=== PATIENT | female | born 1990 | race Caucasian/White ===

== ENCOUNTER 2023-08-01 16:29 | Inpatient (IN) | payer OTHER, SELFPAY ==
[2023-08-01] VITALS (10 sets, daily range): BP systolic 109–126; BP diastolic 68–85; BMI 26.7; BMI 26.5
--- NOTE | 2023-08-01 09:40 | ED.GENMED ---
History of Present Illness
General
Chief Complaint: Abdominal Symptoms
Source: patient
Exam Limitations: none
Time Seen by Provider: 08/01/23 08:44
Nursing documentation reviewed up to this point in time: agreed with
Travel History
Have you had any contact with someone who has COVID-19?: No
Do you have any symptoms of coronavirus? Fever > 100 degrees, chills, cough, shortness of breath, sore throat, loss of taste or smell, muscle aches, or headache?: No
History of Present Illness
History of Present Illness:
Patient presents to ED secondary to persistent nausea, vomiting, and nonbloody diarrhea, along with abdominal cramping sensation over the past 3 days. Patient reports having had meal at [employer] today of her symptoms. Patient initially considered food
poisoning, but her symptoms have continued. Denies sick contact. Denies recent travel. Patient has had fever as high as up to 101. Denies previous history of similar symptoms. Of note, patient is currently breast-feeding at home.
Review of Systems
Review of Systems
Allergies reviewed?: Yes
All Other Systems: ROS reviewed and negative except as documented in HPI and ROS
Constitutional: Reports fever
EENT: Reports no symptoms
Respiratory: Reports no symptoms
Cardiac: Reports no symptoms
ABD/GI: Reports abdominal pain, nausea, vomiting and diarrhea
: Reports no symptoms
Musculoskeletal: Reports no symptoms
Skin: Reports no symptoms
Neurological: Reports no symptoms
Phy Exam
Physical Exam
Physical Exam:
Physical Exam
General: no apparent distress, not acutely ill. afebrile
Head: nc/at. eomi
Neck: supple. no meningeal signs.
Heart: tachcardic, no murmur. equal radial pulses.
Lungs: no acute respiratory distress. clear bilaterally
Abdomen: normal bowel sounds. mild diffuse tenderness. mild distention noted.
Neuro: alert and oriented. no focal neurological deficits
Skin: no rash
Psychiatric: well kept. interactive and cooperative
Extremities: no edema. no calf tenderness.
Course
Orders/Labs/Results
Orders:
Orders
08/01/23 09:18
0.9% Sodium Chloride 1000 ml [Nss] 1,000 ml IV BOLUS
Ketorolac [Toradol] 15 mg IV NOW STA
Pantoprazole [Protonix IV] 40 mg IV NOW STA
Test Result ONCE
08/01/23 09:27
0.9% Sodium Chloride 1000 ml [Nss] 1,000 ml IV BOLUS
08/01/23 09:57
Complete Blood Count/With Diff Urgent
Comprehensive Metabolic Panel Urgent
HCG, Serum Qualitative Screen Urgent
Magnesium Urgent
Urinalysis Reflex To Culture Urgent
Date Specimen was Collected: 08/01/23
Time Specimen was Collected: 09:47
Urine Microscopic Reflex Cult Urgent
08/01/23 11:13
CT Abd/pel (oral only)-DH Only Urgent
Comment:
Reason For Exam: lower abdominal pain
Iohexol [Omnipaque] See Protocol PO NOW STA
08/01/23 11:26
Norovirus by PCR Urgent
SHAIN[facility] Source: Feces/Stool
Specimen Description:
Date Specimen was Collected: 08/01/23
Time Specimen was Collected: 11:25
Stool Culture Urgent
SHAINA Source: Feces/Stool
Specimen Description:
Date Specimen was Collected: 08/01/23
Time Specimen was Collected: 11:25
08/01/23 11:51
Acetaminophen [Tylenol] 650 mg PO NOW STA
08/01/23 14:21
Piperacillin/Tazo 3.375 Gram [Zosyn] 3.375 gram in 50 ml .ROUTE .STK-MED
08/01/23 14:24
Piperacillin/Tazo 3.375 Gram [Zosyn] 3.375 gram in 50 ml IV NOW
08/01/23 Dinner
NPO
Allow oral meds: No
Allow clear liquids: No
NPO with Ice Chips: No
NPO
Allow oral meds: Yes
Allow clear liquids: No
NPO with Ice Chips: Yes
08/01/23 15:34
SURGICAL CONSULT Routine
Consulting Provider: Vickey Yoon
Was physician already notified: Yes
Reason for consult: perf appendix
08/01/23 15:37
Admit/Transfer Patient As Directed
Co-Sign Provider:
Level of Care: Inpatient admission
Assign to:: Medical/Surgical
Physician / Group: tony de guzman
Diagnosis: sepsis with perforated appendix
Reason for Hospitalization: sepsis with perforated appendix
Expected length of stay greater than two midnights?: Yes
ELOS- Estimated Length of Stay in days: 3
I certify the patient meets the requirements for IP care: Yes
Code Status As Directed
Resuscitation Status: Full Code
08/01/23 15:48
Ketorolac [Toradol] 30 mg IV Q6HPRN PRN
Morphine Sulfate 4 mg IV Q4HPRN PRN
Ondansetron Injectable [Zofran] 4 mg IV Q6HPRN PRN
08/01/23 16:00
0.9% Sodium Chloride 1000 ml [Nss] 1,000 ml IV 125 mls/hr
08/01/23 17:42
0.9% Sodium Chloride 1000 ml [Nss] 1,000 ml IV 100 mls/hr
08/01/23 17:42
Activity As Directed
Activity Level: As Tolerated
Intake/ Output As Directed
Frequency: Per unit guidelines
Pneumatic Compression Sleeves As Directed
Type: Knee high
Vital Signs As Directed
Frequency: Per unit guidelines
Pt Eval And Treat Routine
Activity Level: As Tolerated
DX Deep Vein Thrombosis Video Routine
08/01/23 18:11
Blood Culture Q30M
SHAINA Source: Blood/Venous
Specimen Description:
08/01/23 18:53
Blood Culture Q30M
SHAINA Source: Blood/Venous
Specimen Description:
08/01/23 20:00
Piperacillin/Tazo 3.375 Gram [Zosyn] 3.375 gram in 50 ml IV Q6H
08/02/23 05:49
Complete Blood Count/With Diff IN AM
Comprehensive Metabolic Panel IN AM
08/02/23 08:00
Pantoprazole [Protonix IV] 40 mg IV DAILY
Abnormal Lab Results
08/01/23
09:57
WBC 20.6 H 10^3/uL
(4.8-10.8)
MPV 12.1 H fL
(7.4-10.4)
Abs Immat Gran (auto) 0.1 H 10^3/uL
(0-0.05)
Absolute Neuts (auto) 18.0 H 10^3/uL
(1.4-6.5)
Absolute Lymphs (auto) 1.1 L 10^3/uL
(1.2-3.4)
Absolute Monos (auto) 1.2 H 10^3/uL
(0.1-0.6)
Immature Gran % 0.7 H %
(0-0.5)
Neutrophils % 87.5 H %
(42.2-75.2)
Lymphocytes % 5.5 L %
(20.5-51.1)
Sodium 128 L mmol/L
(135-145)
Chloride 96 L mmol/L
(98-107)
Glucose 101 H mg/dl
(70-99)
Urine Ketones 3+ A
(Negative)
Ur Occult Blood Reflex Trace A
(Negative)
Urine Bilirubin 1+ A
(Negative)
Urine Bacteria (Reflex) Few A
(Negative)
Urine Albumin (Reflex) 1+ A
(Neg - Trace)
08/01/23 09:57
08/01/23 09:57
Vital Signs
Initial and Last Documented VS:
Initial Vital Signs
Temp Pulse Resp BP Pulse Ox
98.4 F 140 16 113/77 98
08/01/23 08:44 08/01/23 08:44 08/01/23 08:44 08/01/23 08:44 08/01/23 08:44
Last Documented Vital Signs
Temp Pulse Resp BP Pulse Ox
98.9 F 104 18 126/74 98
08/02/23 04:00 08/01/23 23:00 08/01/23 23:00 08/01/23 23:00 08/01/23 23:00
MDM/Problems Addressed
MDM/Problems Addressed:
Pt found to be moderately dehydration during initial evaluation, due to lack of oral intake along with ongoing vomiting/diarrhea. Pt resuscitated with 2 L IV fluids upon arrival.
History and exam, along with CT scan concerning for perforated appendix.
Discussed with (surgery) who will come and evaluate. Yefri given
Critical care statement: A total of 40 minutes of critical care time was provided for this patient. This includes management of unstable vital signs, evaluation of the patient at bedside, reviewing the patient's pertinent medical records, discussion
with consultants, review of old EKGs and review of pertinent medical records. This time with separate from time utilized to perform the aforementioned documented procedures
*Critical Care Note
Total Time (30-74mins, 75-104mins- exclusive of procedures): 40 min
ED Attending Note
-
Portions of this chart may have been created with voice recognition software.� Occasional wrong word or��sound alike� substitutions may have occurred due to the inherent limitations of voice recognition software.
Discharge Plan
Departure
Patient Disposition: Admit
Date of Disposition: 08/01/23
Time of Disposition: 14:25
Presentation/result/management discussed w/ accepting MD/DO: Hospitalist
Discharge Problem:
Perforated appendix
Interventions
Interventions:
*Risk Screen - Suicide Last Done: 08/01/23 09:43
*General Assessment Last Done: 08/01/23 09:43
*Neglect/Abuse Screening Last Done: 08/01/23 09:43
ED- Fall Risk Assessment Last Done: 08/01/23 09:43
*ED COVID-19 Vaccine History Last Done: 08/01/23 08:44
*Nursing Disposition Last Done: 08/01/23 17:58
BW-Prrqya-Kqjfghhbyq Assessment Last Done: 08/01/23 09:43
Discharge Date and Time
Discharge Date/Time: 08/01/23 17:59
[2023-08-01] MEDS: NSS 1000 IV ×3 (10:00→16:49)
[2023-08-01] MEDS: PROTONIX IV 40 MG IV (10:08)
[2023-08-01 10:14] LABS: Urine Albumin 1+ (Neg - Trace); Urine Bilirubin 1+ (Negative); Urine Character Clear (Clear); Urine Color Yellow; Urine Glucose Negative (Negative); Urine Ketone 3+ (Negative); Urine Leukocyte Negative (Negative); Urine Nitrite Negative (Negative); Urine Occult Blood Trace (Negative); Urine Specific Gravity 1.025 (<1.030); Urine Urobilinogen Negative (Neg - 1+)
[2023-08-01 10:16] LABS: % Basophils 0.3 % (0-2); % Immature Granulocytes 0.7 % (0-0.5); % Lymphocytes 5.5 % (20.5-51.1); % Neutrophils 87.5 % (42.2-75.2); Absolute Basophils 0.1 10^3/uL (0-0.2); Absolute Immature Granulocytes 0.1 10^3/uL (0-0.05); Absolute Lymphocytes 1.1 10^3/uL (1.2-3.4); Absolute Monocytes 1.2 10^3/uL (0.1-0.6); Hematocrit 43.7 % (37.0-47.0); Mean Corp Hgb Conc. 34.3 g/dL (33.0-37.0); Mean Corpuscular Volume 81.5 fL (81.0-99.0); Mean Platelet Volume 12.1 fL (7.4-10.4); Nucleated Red Blood Cells % 0 %; Platelet Count 258 10^3/uL (130-400); Red Blood Cell Count 5.36 10^6/uL (4.20-5.40); Red Cell Dist. Width 13.4 % (11.5-14.5); White Blood Cell Count 20.6 10^3/uL (4.8-10.8)
[2023-08-01 10:21] LABS: HCG, Serum Qualitative Screen Negative
[2023-08-01 10:23] LABS: ALT (SGPT) 14 U/L (0-35); AST (SGOT) 21 U/L (14-36); Alkaline Phosphatase 86 U/L (38-126); Blood Urea Nitrogen 13 mg/dl (7-17); Calcium 9.2 mg/dl (8.4-10.2); Carbon Dioxide 22 mmol/L (22-30); Chloride 96 mmol/L (98-107); Estimated Creatinine Clearance 85 ml/min; Glucose 101 mg/dl (70-99); Magnesium 1.8 mg/dl (1.6-2.3); Potassium 4.1 mmol/L (3.5-5.1); Sodium 128 mmol/L (135-145); Total Protein 7.2 g/dl (6.3-8.2); eGFR > 60.00
[2023-08-01 10:45] LABS: Urine Amorphous Seen; Urine Mucus Few; Urine Squamous Cell 26-30 /LPF (Few)
[2023-08-01 10:46] LABS: Urine Granular Cast >15 /LPF (0)
[2023-08-01 10:57] LABS: Urine Red Blood Cell 0-2 /HPF (0-2); Urine White Cell 0-2 /HPF (0-5)
[2023-08-01 10:58] LABS: Urine Bacteria Few (Negative)
[2023-08-01] MEDS: OMNIPAQUE 50 ML PO (11:22)
[2023-08-01] MEDS: TYLENOL 650 MG PO (12:38)
[2023-08-01] MEDS: ZOSYN 50 IV ×2 (14:30→20:23)
--- NOTE | 2023-08-01 15:39 | HPS.HSE ---
Family Physician
-
Family Physician: Mateus Condon
Chief Complaint
-
nausea/pain
History of Present Illness
33 y/o F, no prior PMH, presents to ER, with nausea/vomiting and diarrhea. Symptoms began 3 days ago and progressed. Today she was having a meal and symptoms returned. She initially thought it was related to food poisoning but her symptoms
continued. She reports fever but no chills. No other complaints. No recent illness, sick contacts or travel.
She is currently her 4 month old.
Medical History
Past Medical History
Past Medical History: Reports None
Past Surgical History: Reports None
Social History
Tobacco: Non-smoker
Alcohol: Occasional (social)
Drug: None
Personal:
Living: With Family
Employment: Employed
Family History
Family History: Not pertinent
Allergies / Home Medications
Allergies reflects when Allergies were last updated in [facility].
Home Medications with original date entered in [facility]
Allergy/Medication List:
Allergies
Allergy/AdvReac Type Severity Reaction Status Date / Time
No Known Allergies Allergy Unverified 03/24/23 20:58
Home Medications
vit no.95-ferrous fumarate 28 mg-folic acid 800 mcg tablet () 1 tab PO DAILY 08/01/23
Review of Systems
-
A 12 point ROS was completed and negative except as noted: Yes
Physical Exam
Vital Signs
Vital Signs
Temp Pulse Resp BP Pulse Ox
99.2 F 107 29 119/68 95
08/01/23 13:01 08/01/23 14:15 08/01/23 14:15 08/01/23 14:12 08/01/23 14:15
Physical Exam
General: No Apparent Distress
HEENT: NormoCephalic and Anicteric
Respiratory: No Wheezes or Rales
Cardiac: S1/S2, Regular Rhythm and Tachycardia
GI: Tender (RLQ, slightly distended)
Neuro: AO x 3
Hematologic/Lymphatic: No Lymphadenopathy
Psych: Calm
Laboratory Results
-
08/01/23 09:57
08/01/23 09:57
Laboratory Results
Total Bilirubin 1.0 mg/dl (0.2-1.3) 08/01/23 09:57
AST 21 U/L (14-36) 08/01/23 09:57
ALT 14 U/L (0-35) 08/01/23 09:57
Alkaline Phosphatase 86 U/L (38-126) 08/01/23 09:57
Data Reviewed
-
CT Scan: Report Reviewed by me
Lab Data: Labs Reviewed by me
Impression/Plan
-
Assessment:
Acute appendicitis with perforation
Sepsis POA (tachycardia, fever, leukocytosis)
- CT: Severe cecal tip thickening, right lower quadrant stranding, probable extraluminal pockets of air and contrast with poor visualization of the appendix concerning for acute appendicitis and appendiceal rupture. No focal abscess identified.
Moderate diffuse circumferential wall thickening of the distal ileum probably reactive to the above process. Mild free fluid in the pelvis.
- NPO/IVF
- pain control, anti-emetics
- IV Zosyn and follow cultures
- GS consulted; they recommended IRAD evaluation for drain placement but per IR no drainable abscess.
- surgical timing TBD.
Hyponatremia
- continue IVF
DVT ppx:
Code: Full
--- NOTE | 2023-08-01 17:28 | CON.GS ---
Consultation
-
Date/Time Consultation Requested: 08/01/2023 4 PM
Date/Time Consultation Performed: 08/01/2023 4 PM
Requesting Provider: Dr. Noble
Performing Provider: Dr. Yoon
Reason for Consultation: Acute appendicitis
Medical History
-
Chief Complaint: Right lower quadrant abdominal pain.
History of Present Illness:
This is a 33-year-old female no significant past medical history, 4 months presents with 3 to 4 days of initially periumbilical then right lower quadrant pain. As she had some associated nausea and vomiting followed by some diarrhea and
she initially thought that this was food poisoning however symptoms continued to worsen. The patient denies Fever, Chest Pain, Shortness Of Breath, changes in urinary, unintentional weight loss, jaundice, icterus, acolic stools.
Past Medical History
Past Medical History: None
Past Surgical History: None
Social History
Tobacco: Non-Smoker
Alcohol: None
Drug: None
Personal:
Family History
Family History: Reviewed & Not Pertinent
Allergies / Home Medications
Allergy/AdvReac Type Severity Reaction Status Date / Time
No Known Allergies Allergy Unverified 03/24/23 20:58
�Medication �Instructions �Recorded �Confirmed �Type
vit no.95-ferrous 1 tab PO DAILY 08/01/23 08/01/23 History
fumarate 28 mg-folic acid 800 mcg
tablet ()
Review of Systems
-
A 10 point review of systems was completed, and was negative except as per HPI.
Physical Exam
Vital Signs
Temp Pulse Resp BP Pulse Ox
99.2 F 111 20 109/75 96
08/01/23 13:01 08/01/23 17:00 08/01/23 17:00 08/01/23 17:00 08/01/23 16:45
07/31/23 08/01/23 08/02/23
06:59 06:59 06:59
Actual Weight 64 kg
Body Mass Index (BMI) 26.7
Lab Results
08/01/23:57
08/01/23:57
WBC 20.6 10^3/uL (4.8-10.8) H 08/01/23:57
Hgb 15.0 g/dL (12.0-16.0) 08/01/23:57
Hct 43.7 % (37.0-47.0) 08/01/23:57
Plt Count 258 10^3/uL (130-400) 08/01/23:57
Abs Immat Gran (auto) 0.1 10^3/uL (0-0.05) H 08/01/23:57
Neutrophils % 87.5 % (42.2-75.2) H 08/01/23:57
Physical Exam
HEENT: Normocephalic
Respiratory: Non Labored Respirations
GI: Soft, Non Distended and Tender (Focally tender to palpation in the right lower quadrant.)
Data Reviewed
-
CT Scan: Image Personally Visualized and interpreted, Report Reviewed by me, Discussed with Physician, Discussed with Patient and Discussed with Family
Labs: Labs Reviewed by me, Discussed with Physician and Discussed with Patient
Total Time Spent with Patient (in minutes): 30
Assessment / Plan
-
This is a 33-year-old female with no signet past medical history other than being roughly 4 months and currently breast-feeding who presents with a 3 to 4-day history of worsening right lower quadrant abdominal pain. Exam, imaging, lab
work all consistent with perforated appendicitis phlegmon and evolving fluid collection in the right lower quadrant.
Had an extensive discussion with the patient as well as her mother who accompanied her in the room. We discussed upfront surgery which has a high risk of converting to open as well as need for further resection of the distal appendectomy such as a
cecectomy or likely ileocecectomy. As she is not diffusely peritonitic and only focally tender in the right lower quadrant we can pursue nonoperative management with IV antibiotics will and potential IR drainage.
Admit to medicine for nonoperative management of perforated acute appendicitis.
N.p.o. for now, possible clears tomorrow.
IV Zosyn.
IV fluids.
Will follow with serial abdominal exams and plan for likely repeat CT scan in 2 days possible IR drainage if an abscess has formed. I did explain that if her pain worsens or she clinically deteriorates we we will have to move forward with surgery.
All questions answered. Patient agreeable to the plan described above. We will continue to follow.
I spent roughly 75 minutes in total for the care of this patient today including direct patient care and counseling, reviewing labs, imaging, coordination of care, as well as documentation.
--- NOTE | 2023-08-01 17:30 | PTCARENOTE ---
Patient received from ED on stretcher and able to ambulate into room independently. Patient oriented to room. Call ahmadi in reach. Patient is 4 months post- and verbalizes that she is . Patient provided with breastmilk cooler and
ice pack to store expressed milk bedside.
[2023-08-01] MEDS: NSS IV (18:01)
[2023-08-01] MEDS: TYLENOL/FEVERALL 650 MG RECTAL (23:15)
[2023-08-02] MEDS: ZOSYN 50 IV ×3 (01:13→12:50)
[2023-08-02] MEDS: NSS 1000 IV ×3 (01:16→23:03)
[2023-08-02 06:35] LABS: % Basophils 0.5 % (0-2); % Eosinophils 0.3 % (0-6); % Immature Granulocytes 0.6 % (0-0.5); % Lymphocytes 7.6 % (20.5-51.1); % Monocytes 8.3 % (1.7-9.3); % Neutrophils 82.7 % (42.2-75.2); Absolute Basophils 0.1 10^3/uL (0-0.2); Absolute Eosinophils 0.1 10^3/uL (0-0.7); Absolute Immature Granulocytes 0.1 10^3/uL (0-0.05); Absolute Lymphocytes 1.3 10^3/uL (1.2-3.4); Absolute Monocytes 1.4 10^3/uL (0.1-0.6); Absolute Neutrophils 14.2 10^3/uL (1.4-6.5); Hematocrit 36.9 % (37.0-47.0); Hemoglobin 12.6 g/dL (12.0-16.0); Mean Corp Hgb Conc. 34.1 g/dL (33.0-37.0); Mean Corpuscular Hgb 28.2 pg (27.0-31.0); Mean Corpuscular Volume 82.6 fL (81.0-99.0); Nucleated Red Blood Cells % 0 %; Platelet Count 225 10^3/uL (130-400); Red Blood Cell Count 4.47 10^6/uL (4.20-5.40); Red Cell Dist. Width 13.5 % (11.5-14.5); White Blood Cell Count 17.1 10^3/uL (4.8-10.8)
[2023-08-02 07:01] LABS: ALT (SGPT) < 10 U/L (0-35); AST (SGOT) 17 U/L (14-36); Albumin 3.2 g/dl (3.5-5.0); Alkaline Phosphatase 81 U/L (38-126); Blood Urea Nitrogen 10 mg/dl (7-17); Calcium 8.5 mg/dl (8.4-10.2); Carbon Dioxide 18 mmol/L (22-30); Chloride 108 mmol/L (98-107); Estimated Creatinine Clearance 85 ml/min; Glucose 76 mg/dl (70-99); Potassium 3.9 mmol/L (3.5-5.1); Sodium 136 mmol/L (135-145); Total Bilirubin 0.6 mg/dl (0.2-1.3); Total Protein 6.1 g/dl (6.3-8.2); eGFR > 60.00
[2023-08-02 07:46] VITALS: BP 116/71
--- NOTE | 2023-08-02 08:19 | W.PN.HOSP.TC ---
Today's Communication/Plan
-
continue IVF, IV Abx and symptom control
follow GS recs
Assessment / Plan
Assessment / Plan
Assessment:
Acute appendicitis with perforation
Sepsis POA (tachycardia, fever, leukocytosis)
- CT: Severe cecal tip thickening, right lower quadrant stranding, probable extraluminal pockets of air and contrast with poor visualization of the appendix concerning for acute appendicitis and appendiceal rupture. No focal abscess identified.
Moderate diffuse circumferential wall thickening of the distal ileum probably reactive to the above process. Mild free fluid in the pelvis.
- NPO/IVF
- pain control, anti-emetics
- IV Zosyn and follow cultures
- GS consulting; they recommended IRAD evaluation for drain placement but per IR no drainable abscess.
- follow GS recs
Hyponatremia, acute
- resolved
- continue IVF while NPO
DVT ppx: SCDs
Code: Full
Anticipated Discharge: > 48 hours
Subjective/Interval History
-
Date of Service: August 02, 2023
reports pain is less, and improves with Tylenol
tmax 100.3 overnight
WBC 17.1
Objective Data
-
Labs:
Laboratory Results
08/02/23
05:49
WBC 17.1 H
Hgb 12.6
Hct 36.9 L
Plt Count 225
Sodium 136 D
Potassium 3.9
Chloride 108 H
Carbon Dioxide 18 L
BUN 10
Creatinine 0.8
Glucose 76
Calcium 8.5
Total Bilirubin 0.6
AST 17
ALT < 10
Alkaline Phosphatase 81
Vital Signs:
Vital Signs
Temp Pulse Resp BP Pulse Ox
99.4 F 101 19 116/71 99
08/02/23 07:46 08/02/23 07:46 08/02/23 07:46 08/02/23 07:46 08/02/23 07:46
I&O
08/01/23 08/02/23 08/03/23
06:59 06:59 06:59
Intake Total 1200 / 1200
Balance 1200 / 1200
Physical Exam
-
General: No Apparent Distress
HEENT: Normocephalic and Atraumatic
Respiratory: Negative Wheezes or Rales
Cardiac: Regular Rhythm and S1/S2
GI: Soft
Genito-urinary: No Costovertebral Tender
Neuro: AO x 3
Psych: Calm
Data Reviewed
-
Total Time Spent with Patient (in minutes): 41
Labs: Labs Reviewed by me
[2023-08-02] MEDS: PROTONIX IV 40 MG IV (08:59)
[2023-08-02] MEDS: NSS (PRESERVATIVE FREE) 10 ML IV (09:00)
--- NOTE | 2023-08-02 12:33 | W.PN.GS2 ---
Today's Communication / Plan
-
-- Sips of clears
-- Zosyn
-- Repeat CT abdomen/pelvis with IV and oral contrast tomorrow
Assessment / Plan
-
Patient is a 33 yo F p/w severe perforated appendictis
Signs of clinical improvement with less abdominal pain and decreasing WBC. Options for management at this time were reviewed with the patient. Given the degree of surrounding inflammation to her cecum and small bowel high likelihood of either open
ileocecectomy or washout with drain placement if proceeding with operative management at this time. Alternative option of bowel rest antibiotics and repeat abdominal CT scan with hopeful IR guided drain placement was discussed. The pros and cons
of all approaches was discussed. Recommend and plan for bowel rest, antibiotics, and repeat CT scan tomorrow with IR drainage placement. All questions answered.
-- Sips of clears
-- Zosyn
-- Repeat CT abdomen/pelvis with IV and oral contrast tomorrow
Subjective Data
-
Date of Service: August 02, 2023
Pain slightly improved. No nausea or vomiting. Low-grade fever, currently afebrile. Passing flatus and loose nonbloody stools.
Objective Data
-
Intake and Output
08/01/23 08/02/23 08/03/23
06:59 06:59 06:59
Intake Total 1200 / 1200
Balance 1200 / 1200
Intake:
IV fluids (Total) 1100 / 1100
IV piggybacks 100 / 100
Other:
Number of approximated MODERATE 1
amounts of urine
Vital Signs
Temp Pulse Resp BP Pulse Ox
99.1 F 101 19 116/71 99
08/02/23 11:24 08/02/23 07:46 08/02/23 07:46 08/02/23 07:46 08/02/23 07:46
Lab Results
08/02/23 05:49
08/02/23 05:49
Calcium 8.5 mg/dl (8.4-10.2) 08/02/23 05:49
Magnesium 1.8 mg/dl (1.6-2.3) 08/01/23 09:57
Total Bilirubin 0.6 mg/dl (0.2-1.3) 08/02/23 05:49
AST 17 U/L (14-36) 08/02/23 05:49
ALT < 10 U/L (0-35) 08/02/23 05:49
Alkaline Phosphatase 81 U/L (38-126) 08/02/23 05:49
Total Protein 6.1 g/dl (6.3-8.2) L 08/02/23 05:49
Albumin 3.2 g/dl (3.5-5.0) L 08/02/23 05:49
Physical Exam
-
Gen: NAD
Abd: soft, tender to palpation in RLQ, mild distension, no diffuse peritonitis
[2023-08-02 15:30] VITALS: BP 109/59
--- NOTE | 2023-08-02 15:56 | CM ---
Patient seen bedside.
IA completed.
Patient lives with spouse in a 2 story home.
Independent prior to admisison without AD.
Patient has a 4 mo old baby.
Patient drives.
PCP; Dr Condon
Pharmacy: [facility]
Plan: home possible VN/IV anbx.
[2023-08-02] MEDS: TORADOL 30 MG IV (23:01)
[2023-08-02 23:22] VITALS: BP 125/70
[2023-08-03] MEDS: ZOSYN IV (00:21)
[2023-08-03] MEDS: ZOSYN 50 IV ×4 (01:14→20:06)
[2023-08-03 05:58] LABS: Hematocrit 32.9 % (37.0-47.0); Hemoglobin 11.4 g/dL (12.0-16.0); Mean Corp Hgb Conc. 34.7 g/dL (33.0-37.0); Mean Corpuscular Hgb 29.2 pg (27.0-31.0); Mean Corpuscular Volume 84.4 fL (81.0-99.0); Mean Platelet Volume 11.7 fL (7.4-10.4); Platelet Count 211 10^3/uL (130-400); Red Cell Dist. Width 13.7 % (11.5-14.5); White Blood Cell Count 15.8 10^3/uL (4.8-10.8)
[2023-08-03 06:24] LABS: Blood Urea Nitrogen 13 mg/dl (7-17); Calcium 8.4 mg/dl (8.4-10.2); Carbon Dioxide 17 mmol/L (22-30); Chloride 109 mmol/L (98-107); Estimated Creatinine Clearance 97 ml/min; Glucose 68 mg/dl (70-99); Sodium 135 mmol/L (135-145); eGFR > 60.00
[2023-08-03 06:30] LABS: Potassium 3.6 mmol/L (3.5-5.1)
[2023-08-03 08:00] VITALS: BP 128/69
[2023-08-03] MEDS: PROTONIX IV 40 MG IV (08:32)
[2023-08-03] MEDS: NSS (PRESERVATIVE FREE) 10 ML IV (08:32)
[2023-08-03] MEDS: NSS 1000 IV (11:04)
--- NOTE | 2023-08-03 11:44 | W.PN.GS2 ---
Today's Communication / Plan
-
Adv to CLD
Cont abx
Hold off on rpt CT for now, likely will need prior to DC, timing TBD
Assessment / Plan
-
Patient is a 33 yo F p/w severe perforated appendictis
Signs of clinical improvement with less abdominal pain and decreasing WBC. Options for management at this time were reviewed with the patient. Given the degree of surrounding inflammation to her cecum and small bowel high likelihood of either open
ileocecectomy or washout with drain placement if proceeding with operative management at this time. Alternative option of bowel rest antibiotics and repeat abdominal CT scan with hopeful IR guided drain placement was discussed. The pros and cons
of all approaches was discussed. Recommend and plan for bowel rest, antibiotics, and repeat CT scan tomorrow with IR drainage placement. All questions answered.
-- CLD
-- Zosyn
-- Monitor WBC/temp curve, repeat CT abdomen/pelvis with IV and oral contrast if these worsen. If they remain stable, would rpt the CT scan prior to DC or after 48-72 hours to allow time for any potential abcess to coalesce
-- DVT ppx
Subjective Data
-
Date of Service: August 03, 2023
Low grade fever intermittently persists, otherwise VSS, pain improving, hungry, denies n/v
Objective Data
-
Intake and Output
08/02/23 08/03/23 08/04/23
06:59 06:59 06:59
Intake Total 2400 / 2400
Balance 2400 / 2400
Intake:
IV fluids (Total) 2250 / 2250
IV piggybacks 150 / 150
Other:
Number of approximated MODERATE 1
amounts of urine
Vital Signs
Temp Pulse Resp BP Pulse Ox
98.4 F 90 12 128/69 96
08/03/23 08:00 08/03/23 08:00 08/03/23 08:00 08/03/23 08:00 08/03/23 08:00
Lab Results
08/03/23 05:34
08/03/23 05:34
Calcium 8.4 mg/dl (8.4-10.2) 08/03/23 05:34
Magnesium 1.8 mg/dl (1.6-2.3) 08/01/23 09:57
Total Bilirubin 0.6 mg/dl (0.2-1.3) 08/02/23 05:49
AST 17 U/L (14-36) 08/02/23 05:49
ALT < 10 U/L (0-35) 08/02/23 05:49
Alkaline Phosphatase 81 U/L (38-126) 08/02/23 05:49
Total Protein 6.1 g/dl (6.3-8.2) L 08/02/23 05:49
Albumin 3.2 g/dl (3.5-5.0) L 08/02/23 05:49
Physical Exam
-
Gen: NAD, non-toxic
Abd: soft, localized mod ttp to RLQ
--- NOTE | 2023-08-03 12:03 | W.PN.HOSP.TC ---
Today's Communication/Plan
-
CLD
follow exam
CT in 48-72 hours or sooner if symptoms/exam changes
cap IVF
Assessment / Plan
Assessment / Plan
Assessment:
Acute appendicitis with perforation
Sepsis POA (tachycardia, fever, leukocytosis)
- CT: Severe cecal tip thickening, right lower quadrant stranding, probable extraluminal pockets of air and contrast with poor visualization of the appendix concerning for acute appendicitis and appendiceal rupture. No focal abscess identified.
Moderate diffuse circumferential wall thickening of the distal ileum probably reactive to the above process. Mild free fluid in the pelvis.
- clear liquid started by Surgery; monitor tolerance
- cap IVF while on CLD
- continue pain control, anti-emetics
- continue IV Zosyn, day 2
- consider repeat CT in ~48-72 hours
- follow GS recs
Hyponatremia, acute
- resolved
- cap IVF while on CLD
DVT ppx: SCDs
Code: Full
Anticipated Discharge: > 48 hours
Subjective/Interval History
-
Date of Service: August 03, 2023
denies any new complaints at present
pain improved
low grade temps at times
for CLD
Objective Data
-
Labs:
Laboratory Results
08/03/23
05:34
WBC 15.8 H
Hgb 11.4 L
Hct 32.9 L
Plt Count 211
Sodium 135
Potassium 3.6
Chloride 109 H
Carbon Dioxide 17 L
BUN 13
Creatinine 0.7
Glucose 68 L
Calcium 8.4
Vital Signs:
Vital Signs
Temp Pulse Resp BP Pulse Ox
98.4 F 90 12 128/69 96
08/03/23 08:00 08/03/23 08:00 08/03/23 08:00 08/03/23 08:00 08/03/23 08:00
I&O
08/02/23 08/03/23 08/04/23
06:59 06:59 06:59
Intake Total 2400 / 2400
Balance 2400 / 2400
Physical Exam
-
General: No Apparent Distress
HEENT: Normocephalic
Respiratory: Negative Wheezes
Cardiac: Regular Rhythm
GI: Tender
Genito-urinary: No Costovertebral Tender
Musculoskeletal: No Edema
Neuro: AO x 3
Hematologic / Lymphatic: No Lymphadenopathy
Psych: Calm
Data Reviewed
-
Total Time Spent with Patient (in minutes): 41
Labs: Labs Reviewed by me
[2023-08-03 15:00] VITALS: BP 120/68
[2023-08-03] MEDS: TORADOL 30 MG IV (20:05)
[2023-08-03 23:45] VITALS: BP 111/52
[2023-08-04] MEDS: ZOSYN 50 IV ×4 (01:59→21:08)
[2023-08-04 07:21] LABS: Hematocrit 37.1 % (37.0-47.0); Hemoglobin 13.2 g/dL (12.0-16.0); Mean Corp Hgb Conc. 35.6 g/dL (33.0-37.0); Mean Corpuscular Hgb 28.4 pg (27.0-31.0); Mean Corpuscular Volume 79.8 fL (81.0-99.0); Mean Platelet Volume 12.1 fL (7.4-10.4); Platelet Count 176 10^3/uL (130-400); Red Blood Cell Count 4.65 10^6/uL (4.20-5.40); Red Cell Dist. Width 13.4 % (11.5-14.5)
[2023-08-04 07:25] VITALS: BP 123/66
[2023-08-04 08:06] LABS: Blood Urea Nitrogen 5 mg/dl (7-17); Calcium 8.4 mg/dl (8.4-10.2); Carbon Dioxide 22 mmol/L (22-30); Chloride 105 mmol/L (98-107); Estimated Creatinine Clearance 113 ml/min; Glucose 106 mg/dl (70-99); Sodium 134 mmol/L (135-145); eGFR > 60.00
[2023-08-04] MEDS: PROTONIX IV 40 MG IV (08:18)
[2023-08-04] MEDS: NSS (PRESERVATIVE FREE) 10 ML IV (08:18)
[2023-08-04] MEDS: KCL 40 MEQ PO ×2 (09:04→14:17)
[2023-08-04] MEDS: OMNIPAQUE 50 ML PO (09:05)
--- NOTE | 2023-08-04 09:22 | W.PN.GS2 ---
Addendum entered and electronically signed by Efrem Martinez MD 08/04/23 11:09:
Patient seen and examined with surgical nurse practitioner. Agree with documented progress note.
Patient feels about the same. Still with some discomfort/tenderness in the right lower quadrant but manageable and has not required narcotics. Last dose of Toradol yesterday evening. No nausea, tolerating liquids. Feels a bit bloated/distended
still. Passing some small loose stools.
AFVSS -Tmax 99.9
ABD: Softly distended/protuberant. Tenderness to palpation localized in the right lower quadrant without rebound rigidity or guarding.
WBC 19.0
Assessment/plan: 33-year-old female with complicated acute appendicitis -perforation but initially without drainable abscess formation.
Will obtain follow-up CT abdomen/pelvis contrast imaging to evaluate for potential interval development of drainable abscess.
Maintain Zosyn
Clear liquid diet for now until CT imaging obtained
Original Note:
Today's Communication / Plan
-
CT abd/pelvis
Assessment / Plan
-
Patient is a 33 yo F p/w severe perforated appendicis
Low grade temps, VSS
Leukocytosis present, WBC trending up
-- Check CT abd/pelvis today with IV and PO contrast to evaluate for potential abscess
-- CLD
-- Continue Zosyn
-- DVT ppx
Subjective Data
-
Date of Service: August 04, 2023
Patient seen and examined at bedside with Dr. Martinez. Denies n/v. Localized discomfort to the RLQ. Passing some small loose stools. Was able to shower today
Objective Data
-
Intake and Output
08/03/23 08/04/23 08/05/23
06:59 06:59 06:59
Intake Total 2400 / 2400 1680 / 1680
Balance 2400 / 2400 1680 / 1680
Intake:
Oral fluids 1679
IV fluids (Total) 2249
IV piggybacks 150 / 150
Other:
Number of approximated MODERATE 2
amounts of urine
Vital Signs
Temp Pulse Resp BP Pulse Ox
97.5 F 90 18 123/66 97
08/04/23 07:25 08/04/23 07:25 08/04/23 07:25 08/04/23 07:25 08/04/23 07:25
Lab Results
08/04/23 07:10
08/04/23 07:41
Calcium 8.4 mg/dl (8.4-10.2) 08/04/23 07:41
Magnesium 1.8 mg/dl (1.6-2.3) 08/01/23 09:57
Total Bilirubin 0.6 mg/dl (0.2-1.3) 08/02/23 05:49
AST 17 U/L (14-36) 08/02/23 05:49
ALT < 10 U/L (0-35) 08/02/23 05:49
Alkaline Phosphatase 81 U/L (38-126) 08/02/23 05:49
Total Protein 6.1 g/dl (6.3-8.2) L 08/02/23 05:49
Albumin 3.2 g/dl (3.5-5.0) L 08/02/23 05:49
Physical Exam
-
Gen: NAD, non-toxic
Abd: soft, localized mild to mod ttp to RLQ
--- NOTE | 2023-08-04 10:37 | W.PN.HOSP.TC ---
Today's Communication/Plan
-
follow repeat CT results
clears and IV Abx for now
Assessment / Plan
Assessment / Plan
Assessment:
Acute appendicitis with perforation
Sepsis POA (tachycardia, fever, leukocytosis)
- CT: Severe cecal tip thickening, right lower quadrant stranding, probable extraluminal pockets of air and contrast with poor visualization of the appendix concerning for acute appendicitis and appendiceal rupture. No focal abscess identified.
Moderate diffuse circumferential wall thickening of the distal ileum probably reactive to the above process. Mild free fluid in the pelvis.
- clear liquid started by Surgery; monitor tolerance
- cap IVF while on CLD
- continue pain control, anti-emetics
- continue IV Zosyn, day 3
- with rising WBC; repeat CT ordered today; f/u results
- follow GS recs
Hyponatremia, acute
- resolved
- cap IVF while on CLD
DVT ppx: SCDs
Code: Full
Anticipated Discharge: > 48 hours
Subjective/Interval History
-
Date of Service: August 04, 2023
denies any new complaints but WBC [address]
Objective Data
-
Labs:
Laboratory Results
08/04/23 08/04/23
07:10 07:41
WBC 19.0 H
Hgb 13.2
Hct 37.1
Plt Count 176
Sodium Cancelled 134 L
Potassium Cancelled 3.0 L
Chloride Cancelled 105
Carbon Dioxide Cancelled 22
BUN Cancelled 5 L
Creatinine Cancelled 0.6
Glucose Cancelled 106 H
Calcium Cancelled 8.4
Vital Signs:
Vital Signs
Temp Pulse Resp BP Pulse Ox
97.5 F 90 18 123/66 97
08/04/23 07:25 08/04/23 07:25 08/04/23 07:25 08/04/23 07:25 08/04/23 07:25
I&O
08/03/23 08/04/23 08/05/23
06:59 06:59 06:59
Intake Total 2400 / 2400 1680 / 1680
Balance 2400 / 2400 1680 / 1680
Physical Exam
-
General: No Apparent Distress
HEENT: Normocephalic and Atraumatic
Respiratory: Negative Wheezes
Cardiac: Regular Rhythm
GI: Soft and Tender (mild RLQ)
Musculoskeletal: No Edema
Neuro: AO x 3
Hematologic / Lymphatic: No Lymphadenopathy
Psych: Calm
Data Reviewed
-
Total Time Spent with Patient (in minutes): 44
Labs: Labs Reviewed by me
--- NOTE | 2023-08-04 13:13 | CM ---
Repeat CT abdomen and pelvis today.
IV anbx continued.
Clears.
Plan: home when stable, watch for needs.
[2023-08-04 15:24] VITALS: BP 117/79; BP_SYST 97
--- NOTE | 2023-08-04 16:50 | W.PN.UPDATE ---
Update Note
Progress Note Update
CT guided abscess drain placed RLQ, yielding 30 cc of pus.
Hopefully the pelvic collection will also be drained by this drain.
[2023-08-04 17:10] VITALS: BP 112/62
[2023-08-04] MEDS: TORADOL 30 MG IV (18:34)
[2023-08-04 23:09] VITALS: BP 99/62
[2023-08-05] MEDS: ZOSYN 50 IV ×4 (02:49→20:33)
[2023-08-05] MEDS: TORADOL 30 MG IV ×2 (02:50→17:16)
[2023-08-05 07:05] LABS: Hematocrit 33.7 % (37.0-47.0); Hemoglobin 11.5 g/dL (12.0-16.0); Mean Corp Hgb Conc. 34.1 g/dL (33.0-37.0); Mean Corpuscular Hgb 27.8 pg (27.0-31.0); Mean Corpuscular Volume 81.4 fL (81.0-99.0); Mean Platelet Volume 12.2 fL (7.4-10.4); Platelet Count 286 10^3/uL (130-400); Red Blood Cell Count 4.14 10^6/uL (4.20-5.40); Red Cell Dist. Width 13.7 % (11.5-14.5); White Blood Cell Count 16.8 10^3/uL (4.8-10.8)
[2023-08-05 07:41] VITALS: BP 106/69
[2023-08-05 07:45] LABS: Blood Urea Nitrogen 3 mg/dl (7-17); Calcium 8.4 mg/dl (8.4-10.2); Carbon Dioxide 22 mmol/L (22-30); Chloride 107 mmol/L (98-107); Estimated Creatinine Clearance 113 ml/min; Glucose 91 mg/dl (70-99); Potassium 3.6 mmol/L (3.5-5.1); Sodium 135 mmol/L (135-145); eGFR > 60.00
--- NOTE | 2023-08-05 08:33 | W.PN.GS2 ---
Addendum entered and electronically signed by Jaime Catalan MD 08/05/23 13:00:
I saw and examined the patient.
The Machine Clerical Verifier's note was reviewed and I agree with the note.
Comment: Doing well, mild ttp to RLQ is improved. WBC improving. She is anxious to go home, I advised her it is too early to DC home today. Cont IV abx and trend WBC.
Original Note:
Today's Communication / Plan
-
Advance diet
Assessment / Plan
-
Patient is a 33 yo F p/w severe perforated appendicitis
CT on 08/03 with interim development of abscess
PPD #1 IR drainage of abscess
AFVSS
WBC trending back down s/p drain placement
-- Continue IR drain, will remain in place upon d/c. Consulted CM for VNA arrangements.
-- Fluid cx pending
-- Advance diet and follow for tolerance
-- Continue Zosyn, anticipate transition to PO Augmentin upon d/c
-- DVT ppx
Subjective Data
-
Date of Service: August 05, 2023
Patient seen and examined at bedside. Denies n/v. Passing flatus and a little diarrhea. Distention improving. Some RLQ soreness.
Objective Data
-
Intake and Output
08/04/23 08/05/23 08/06/23
06:59 06:59 06:59
Intake Total 1680 / 1680 970 / 970
Output Total 40 / 40
Balance 1680 / 1680 930 / 930
Intake:
Oral fluids 1680 / 1680 780 / 780
IV fluids (Total) 180 / 180
Amount instilled into Drain (
Total)
Right Lower Abdomen Valentin-
Shrestha Placed in IR
Output:
Drain Output (Total) 40 / 40
Right Lower Abdomen Valentin-
Shrestha Placed in IR
Other:
Number of approximated SMALL 1
amounts of urine
Number of approximated MODERATE 2 3
amounts of urine
Vital Signs
Temp Pulse Resp BP Pulse Ox
97.6 F 93 18 106/69 99
08/05/23 07:41 08/05/23 07:41 08/05/23 07:41 08/05/23 07:41 08/05/23 07:41
Lab Results
08/05/23 05:41
08/05/23 05:41
Calcium 8.4 mg/dl (8.4-10.2) 08/05/23 05:41
Magnesium 1.8 mg/dl (1.6-2.3) 08/01/23 09:57
Total Bilirubin 0.6 mg/dl (0.2-1.3) 08/02/23 05:49
AST 17 U/L (14-36) 08/02/23 05:49
ALT < 10 U/L (0-35) 08/02/23 05:49
Alkaline Phosphatase 81 U/L (38-126) 08/02/23 05:49
Total Protein 6.1 g/dl (6.3-8.2) L 08/02/23 05:49
Albumin 3.2 g/dl (3.5-5.0) L 08/02/23 05:49
Physical Exam
-
Gen: NAD, non-toxic
Abd: soft, localized mild ttp to RLQ, IR drain with cloudy fluid
[2023-08-05] MEDS: NSS (PRESERVATIVE FREE) 10 ML IV (09:25)
[2023-08-05] MEDS: PROTONIX IV 40 MG IV (09:26)
--- NOTE | 2023-08-05 10:20 | CM ---
Addendum entered by Sharron Antoine 08/05/23 11:57:
Per Cleo Nails, patient will be discharged today to tomorrow; and reported that Dr. Yoon will manage home health VN orders
[facility] liaison, Belle Chang, notified via [place] [employer]
Addendum entered by Sharron Antoine 08/05/23 10:26:
Home Health referral sent via [facility] text to [facility] liaison and [facility]
Original Note:
Met with patient at bedside to discuss discharge plan: home health VN to monitor RLQ abdominal drain
Plan: Discharge to home with home health services from [facility] when medically stable; will provide transport home
--- NOTE | 2023-08-05 13:33 | W.PN.HOSP.TC ---
Today's Communication/Plan
-
follow WBC and continue IV Abx
follow drain output; VN at discharge
Assessment / Plan
Assessment / Plan
Assessment:
Acute appendicitis with perforation
Sepsis POA (tachycardia, fever, leukocytosis)
- CT: Severe cecal tip thickening, right lower quadrant stranding, probable extraluminal pockets of air and contrast with poor visualization of the appendix concerning for acute appendicitis and appendiceal rupture. No focal abscess identified.
Moderate diffuse circumferential wall thickening of the distal ileum probably reactive to the above process. Mild free fluid in the pelvis.
- repeat CT 08/03 with RLQ and pelvic abscess s/p IRAD drainage 08/03
- continue pain control, anti-emetics
- continue IV Zosyn, day 4
- follow WBC
- diet: LRD tolerating
- follow GS recs
Hyponatremia, acute
- resolved
- cap IVF while on CLD
DVT ppx: SCDs
Code: Full
Anticipated Discharge: 24 - 48 hours
Subjective/Interval History
-
Date of Service: August 05, 2023
s/p IRAD drainage yesterday
denies any new complaints
Objective Data
-
Labs:
Laboratory Results
08/05/23
05:41
WBC 16.8 H
Hgb 11.5 L
Hct 33.7 L
Plt Count 286 D
Sodium 135
Potassium 3.6
Chloride 107
Carbon Dioxide 22
BUN 3 L
Creatinine 0.5 L
Glucose 91
Calcium 8.4
Vital Signs:
Vital Signs
Temp Pulse Resp BP Pulse Ox
97.6 F 93 18 106/69 99
08/05/23 07:41 08/05/23 07:41 08/05/23 07:41 08/05/23 07:41 08/05/23 08:51
I&O
08/04/23 08/05/23 08/06/23
06:59 06:59 06:59
Intake Total 1680 / 1680 970 / 970
Output Total 40 / 40
Balance 1680 / 1680 930 / 930
Physical Exam
-
General: No Apparent Distress
HEENT: Normocephalic and Atraumatic
Respiratory: Negative Wheezes or Rales
Cardiac: Regular Rhythm and S1/S2
GI: Soft and Other (RLQ drain)
Genito-urinary: No Costovertebral Tender
Neuro: AO x 3
Hematologic / Lymphatic: No Lymphadenopathy
Psych: Calm
Data Reviewed
-
Total Time Spent with Patient (in minutes): 42
Labs: Labs Reviewed by me
[2023-08-05 15:53] VITALS: BP 100/67
[2023-08-05] MEDS: TYLENOL 650 MG PO (23:28)
[2023-08-05 23:55] VITALS: BP 122/73
[2023-08-06] MEDS: ZOSYN 50 IV ×2 (02:46→08:41)
[2023-08-06 07:08] VITALS: BP 131/79
[2023-08-06 08:16] LABS: Hematocrit 33.6 % (37.0-47.0); Mean Corp Hgb Conc. 35.7 g/dL (33.0-37.0); Mean Corpuscular Hgb 28.1 pg (27.0-31.0); Mean Corpuscular Volume 78.7 fL (81.0-99.0); Mean Platelet Volume 12.1 fL (7.4-10.4); Platelet Count 308 10^3/uL (130-400); Red Blood Cell Count 4.27 10^6/uL (4.20-5.40); White Blood Cell Count 17.1 10^3/uL (4.8-10.8)
[2023-08-06] MEDS: PROTONIX 40 MG PO (08:41)
[2023-08-06] MEDS: TYLENOL 650 MG PO (08:50)
[2023-08-06 08:51] LABS: Blood Urea Nitrogen 3 mg/dl (7-17); Calcium 8.6 mg/dl (8.4-10.2); Carbon Dioxide 25 mmol/L (22-30); Chloride 104 mmol/L (98-107); Estimated Creatinine Clearance 113 ml/min; Glucose 91 mg/dl (70-99); Potassium 3.9 mmol/L (3.5-5.1); Sodium 137 mmol/L (135-145); eGFR > 60.00
--- NOTE | 2023-08-06 11:42 | W.PN.HOSP.TC ---
Today's Communication/Plan
-
dc to home VN later today
Assessment / Plan
Assessment / Plan
Assessment:
Acute appendicitis with perforation
Sepsis POA (tachycardia, fever, leukocytosis)
- CT: Severe cecal tip thickening, right lower quadrant stranding, probable extraluminal pockets of air and contrast with poor visualization of the appendix concerning for acute appendicitis and appendiceal rupture. No focal abscess identified.
Moderate diffuse circumferential wall thickening of the distal ileum probably reactive to the above process. Mild free fluid in the pelvis.
- repeat CT 08/03 with RLQ and pelvic abscess s/p IRAD drainage 08/03. VN at discharge
- continue pain control, anti-emetics
- DC on Augmentin x 2 further weeks.
- follow WBC; stable at near 17. repeat in 1 week
- diet: LRD tolerating
- GS f/u in 7-10 days
Hyponatremia, acute
- resolved
- cap IVF while on CLD
DVT ppx: SCDs
Code: Full
More than 30 minutes spent in discharge including
Final examination of the patient
Summarizing hospital stay
Instructions for continuing care to all relevant caregivers
Preparation of discharge records, prescriptions, and referral forms
Total time spent (in minutes): 42
Anticipated Discharge: Today
Subjective/Interval History
-
Date of Service: August 06, 2023
denies any new complaints at present
Objective Data
-
Labs:
Laboratory Results
08/06/23
06:36
WBC 17.1 H
Hgb 12.0
Hct 33.6 L
Plt Count 308
Sodium 137
Potassium 3.9
Chloride 104
Carbon Dioxide 25
BUN 3 L
Creatinine 0.6
Glucose 91
Calcium 8.6
Vital Signs:
Vital Signs
Temp Pulse Resp BP Pulse Ox
98 F 83 16 131/79 100
08/06/23 07:08 08/06/23 07:08 08/06/23 07:08 08/06/23 07:08 08/06/23 07:08
I&O
08/05/23 08/06/23 08/07/23
06:59 06:59 06:59
Intake Total 970 / 970 900 / 900 480 / 480
Output Total 40 / 40
Balance 930 / 930 900 / 900 470 / 470
Physical Exam
-
General: No Apparent Distress
HEENT: Normocephalic and Atraumatic
Respiratory: Negative Wheezes
Cardiac: Regular Rhythm
GI: Soft
Genito-urinary: No Costovertebral Tender
Musculoskeletal: No Edema
Neuro: AO x 3
Psych: Calm
Data Reviewed
-
Total Time Spent with Patient (in minutes): 42
Labs: Labs Reviewed by me
--- NOTE | 2023-08-06 12:05 | CM ---
manager basketball reviewed patient's chart and plan is to home today with [facility].
Plan; Home with [facility]
--- NOTE | 2023-08-06 12:09 | W.DS.TRANS ---
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
-
Discharge Instructions:
Discharge Diagnosis/Procedures perforated appendicitis with abscess drained 08/03
Diet Low Residue
Activity As tolerated
Bathing Restrictions None
Blood Work repeat blood work in 1 week - script given
Other Services VN
[facility] flush your drain daily with 10ml of
sterile saline. Cover the exit point from the
skin with clean gauze and change the dressing
after showering and as needed. Keep track of the
drainage for your follow up visit.
Instructions: Valentin-Shrestha Drain
How to Keep Track of Your Drainage
Stand-Alone Forms:
Changes to Home Medications: No
Discharge Medications:
DC Medications w/original date entered in [facility]
vit no.95-ferrous fumarate 28 mg-folic acid 800 mcg tablet () 1 tab PO DAILY Supplement 08/01/23
sodium chloride 0.9 % (flush) (Normal Saline Flush 0.9 % injection syringe) 10 ml intra-catheter DAILY drain flush 30 days #300 mL 08/05/23
amoxicillin 875 mg-potassium clavulanate 125 mg tablet 1 tab PO BID #28 tabs 08/06/23
Home Medication Changes
Pending Results: No
Total time spent discharging patient (in min): 42
--- NOTE | 2023-08-06 12:12 | W.PN.GS2 ---
Today's Communication / Plan
-
Dispo planning
Assessment / Plan
-
Patient is a 33 yo F p/w severe perforated appendicitis
CT on 08/03 with interim development of abscess
PPD #2 IR drainage of abscess
AFVSS
Leukocytosis present
-- Continue IR drain, will remain in place upon d/c.
-- Will follow cbc and repeat CT imaging as outpatient as well as final fluid cultures
-- VNA arranged for assistance with drain care
-- Regular diet as tolerated
-- Continue Zosyn, anticipate transition to PO Augmentin upon d/c
-- DVT ppx
D/W hospitalist. Ok for discharge from surgical standpoint
Subjective Data
-
Date of Service: August 06, 2023
Patient seen and examined at bedside with Dr. Soares. Some mild localized RLQ pain. Loose stools/flatus. Tolerating diet. No N/v. and son at bedside.
Objective Data
-
Intake and Output
08/05/23 08/06/23 08/07/23
06:59 06:59 06:59
Intake Total 970 / 970 900 / 900 480 / 480
Output Total
Balance 930 / 930 900 / 900 470 / 470
Intake:
Oral fluids 780 / 780 900 / 900 480 / 480
IV fluids (Total) 180 / 180
Amount instilled into Drain (
Total)
Right Lower Abdomen Valentin-
Shrestha Placed in IR
Output:
Drain Output (Total)
Right Lower Abdomen Valentin-
Shrestha Placed in IR
Other:
Number of approximated SMALL 1
amounts of urine
Number of approximated MODERATE 3 3 2
amounts of urine
Vital Signs
Temp Pulse Resp BP Pulse Ox
98 F 83 16 131/79 98
08/06/23 07:08 08/06/23 07:08 08/06/23 07:08 08/06/23 07:08 08/06/23 08:51
Lab Results
08/06/23 06:36
08/06/23 06:36
Calcium 8.6 mg/dl (8.4-10.2) 08/06/23 06:36
Magnesium 1.8 mg/dl (1.6-2.3) 08/01/23 09:57
Total Bilirubin 0.6 mg/dl (0.2-1.3) 08/02/23 05:49
AST 17 U/L (14-36) 08/02/23 05:49
ALT < 10 U/L (0-35) 08/02/23 05:49
Alkaline Phosphatase 81 U/L (38-126) 08/02/23 05:49
Total Protein 6.1 g/dl (6.3-8.2) L 08/02/23 05:49
Albumin 3.2 g/dl (3.5-5.0) L 08/02/23 05:49
Physical Exam
-
Gen: NAD, non-toxic
Abd: soft, localized mild ttp to RLQ, IR drain with cloudy fluid
== END 2023-08-06 14:01 | disposition home health service (06) | DRG 871 ==
LOC: 4 WEST ACU 16:29
PROVIDERS: Clinical Nurse Specialist Family Health; Radiology Vascular & Interventional Radiology; ADMITTING PHYSICIAN Internal Medicine; CONSULT PHYSICIAN Surgery; EMERGENCY PHYSICIAN Emergency Medicine; FAMILY PHYSICIAN Family Medicine
PROC: 0W9J30Z Drainage of Pelvic Cavity with Drainage Device, Percutaneous Approach (ICD-10-PCS; 2023-08-04)
DX: A41.9 Sepsis, unspecified organism (principal); K35.33 Acute appendicitis with perforation, localized peritonitis, and gangrene, with abscess; E87.1 Hypo-osmolality and hyponatremia; E86.0 Dehydration
CPT/HCPCS: 49406; 74176; 74177; 80048; 80053; 81003; 81015; 83735; 84703; 85025; 85027; 87040; 87045; 87046; 87070; 87077; 87186; 87205; 87427; 87798; 96361; 96365; 96375; 99152; 99291; Q9967

== ENCOUNTER → 2023-08-08 16:23 | Outpatient (REF) | payer OTHER, SELFPAY ==
[2023-08-08 16:50] LABS: % Basophils 0.6 % (0-2); % Eosinophils 3.9 % (0-6); % Immature Granulocytes 3.5 % (0-0.5); % Lymphocytes 20.3 % (20.5-51.1); % Monocytes 5.8 % (1.7-9.3); % Neutrophils 65.9 % (42.2-75.2); Absolute Basophils 0.1 10^3/uL (0-0.2); Absolute Eosinophils 0.7 10^3/uL (0-0.7); Absolute Immature Granulocytes 0.6 10^3/uL (0-0.05); Absolute Lymphocytes 3.5 10^3/uL (1.2-3.4); Absolute Neutrophils 11.4 10^3/uL (1.4-6.5); Hematocrit 34.8 % (37.0-47.0); Hemoglobin 11.6 g/dL (12.0-16.0); Mean Corp Hgb Conc. 33.3 g/dL (33.0-37.0); Mean Corpuscular Hgb 27.9 pg (27.0-31.0); Mean Corpuscular Volume 83.7 fL (81.0-99.0); Mean Platelet Volume 11.2 fL (7.4-10.4); Nucleated Red Blood Cells % 0 %; Platelet Count 467 10^3/uL (130-400); Red Blood Cell Count 4.16 10^6/uL (4.20-5.40); Red Cell Dist. Width 14.5 % (11.5-14.5); White Blood Cell Count 17.3 10^3/uL (4.8-10.8)
[2023-08-08 17:09] LABS: Blood Urea Nitrogen 6 mg/dl (7-17); Calcium 9.1 mg/dl (8.4-10.2); Carbon Dioxide 27 mmol/L (22-30); Chloride 105 mmol/L (98-107); Glucose 104 mg/dl (70-99); Potassium 3.5 mmol/L (3.5-5.1); Sodium 142 mmol/L (135-145); eGFR > 60.00
== END ==
LOC: REG 16:23
PROVIDERS: ATTENDING PHYSICIAN Internal Medicine; FAMILY PHYSICIAN Family Medicine; REFERRING PHYSICIAN Surgery
DX: K35.33 Acute appendicitis with perforation, localized peritonitis, and gangrene, with abscess (principal)
CPT/HCPCS: 36415; 80048; 85025

== ENCOUNTER → 2023-08-10 09:43 | Outpatient (REF) | payer OTHER, SELFPAY | LOC: HWRAD 09:43 | PROVIDERS: ATTENDING PHYSICIAN Surgery; FAMILY PHYSICIAN Family Medicine | DX: K35.32 Acute appendicitis with perforation, localized peritonitis, and gangrene, without abscess (principal) | CPT/HCPCS: 74177; Q9967 ==

== ENCOUNTER → 2023-08-18 16:55 | Outpatient (REF) | payer OTHER, SELFPAY ==
[2023-08-18 17:31] LABS: % Basophils 1.2 % (0-2); % Eosinophils 3.9 % (0-6); % Immature Granulocytes 0.4 % (0-0.5); % Lymphocytes 33.9 % (20.5-51.1); % Monocytes 6.4 % (1.7-9.3); % Neutrophils 54.2 % (42.2-75.2); Absolute Basophils 0.1 10^3/uL (0-0.2); Absolute Eosinophils 0.4 10^3/uL (0-0.7); Absolute Lymphocytes 3.7 10^3/uL (1.2-3.4); Absolute Monocytes 0.7 10^3/uL (0.1-0.6); Hematocrit 35.7 % (37.0-47.0); Mean Corp Hgb Conc. 33.6 g/dL (33.0-37.0); Mean Corpuscular Hgb 28.2 pg (27.0-31.0); Mean Platelet Volume 11.7 fL (7.4-10.4); Nucleated Red Blood Cells % 0 %; Platelet Count 411 10^3/uL (130-400); Red Blood Cell Count 4.25 10^6/uL (4.20-5.40); Red Cell Dist. Width 14.3 % (11.5-14.5)
[2023-08-18 17:38] LABS: ALT (SGPT) 13 U/L (0-35); AST (SGOT) 20 U/L (14-36); Albumin 4.5 g/dl (3.5-5.0); Alkaline Phosphatase 71 U/L (38-126); Blood Urea Nitrogen 10 mg/dl (7-17); Calcium 9.7 mg/dl (8.4-10.2); Carbon Dioxide 29 mmol/L (22-30); Chloride 101 mmol/L (98-107); Glucose 88 mg/dl (70-99); Potassium 4.4 mmol/L (3.5-5.1); Sodium 139 mmol/L (135-145); Total Bilirubin 0.3 mg/dl (0.2-1.3); eGFR > 60.00
== END ==
LOC: REG 16:55
PROVIDERS: ATTENDING PHYSICIAN Surgery; FAMILY PHYSICIAN Family Medicine
DX: K35.32 Acute appendicitis with perforation, localized peritonitis, and gangrene, without abscess (principal)
CPT/HCPCS: 36415; 80053; 85025

== ENCOUNTER → 2023-08-29 17:15 | Outpatient (REF) | payer OTHER, SELFPAY ==
[2023-08-29 17:47] LABS: % Basophils 1.4 % (0-2); % Eosinophils 10.3 % (0-6); % Immature Granulocytes 0.1 % (0-0.5); % Lymphocytes 40.1 % (20.5-51.1); % Monocytes 7.8 % (1.7-9.3); % Neutrophils 40.3 % (42.2-75.2); Absolute Basophils 0.1 10^3/uL (0-0.2); Absolute Monocytes 0.8 10^3/uL (0.1-0.6); Hematocrit 37.9 % (37.0-47.0); Hemoglobin 12.6 g/dL (12.0-16.0); Mean Corp Hgb Conc. 33.2 g/dL (33.0-37.0); Mean Corpuscular Hgb 28.6 pg (27.0-31.0); Mean Corpuscular Volume 85.9 fL (81.0-99.0); Nucleated Red Blood Cells % 0 %; Platelet Count 281 10^3/uL (130-400); Red Blood Cell Count 4.41 10^6/uL (4.20-5.40); Red Cell Dist. Width 14.7 % (11.5-14.5)
[2023-08-29 18:18] LABS: C-Reactive Protein < 5.00 mg/L (0.0-10.00)
== END ==
LOC: REG 17:15
PROVIDERS: ATTENDING PHYSICIAN Surgery; FAMILY PHYSICIAN Family Medicine
DX: K37 Unspecified appendicitis (principal)
CPT/HCPCS: 36415; 85025; 86140

== ENCOUNTER → 2023-08-30 08:42 | Outpatient (REF) | payer OTHER, SELFPAY | LOC: RAD 08:42 | PROVIDERS: ATTENDING PHYSICIAN Surgery; FAMILY PHYSICIAN Family Medicine | DX: K37 Unspecified appendicitis (principal) | CPT/HCPCS: 74177; Q9967 ==

== ENCOUNTER 2023-10-11 06:21 | Day surgery (SDC) | payer OTHER, SELFPAY ==
[2023-10-11] VITALS (11 sets, daily range): BP systolic 60–136; BP diastolic 59–88; BMI 26.5
[2023-10-11] MEDS: NORMOSOL-R 1000 IV ×2 (12:39→16:10)
[2023-10-11] MEDS: TYLENOL 1000 MG PO (12:39)
--- NOTE | 2023-10-11 12:43 | W.SUR.PREOP ---
Pre-Operative Surgical Note
-
I have examined this patient prior to the performance of the scheduled procedure.
The patient's condition is unchanged from the time of the current History and
Physical and the patient is able to undergo the scheduled procedure.
--- NOTE | 2023-10-11 15:07 | W.IMMPOSTOP ---
Surgical Immed Post Op Note
-
Primary Surgeon: Vickey Yoon MD
Assisting Surgeon: None
Pre-op Diagnosis: Acute appendicitis
Post-op Diagnosis: Acute appendicitis, intra-abdominal abscess
Procedure Performed:
1. Laparoscopic lysis of adhesions
2. Laparoscopic interval appendectomy
3. Drainage of an intra-abdominal abscess.
Anesthesia Type: General
Specimen / Cultures:
1. Appendix
Estimated Blood Loss: 11 cc
Complications: None
Operative Findings: Fairly dense adhesions in the right lower quadrant with multiple loops of small bowel and cecum plastered over a perforated appendix. Pus pocket identified with fecalith. The base was not involved but thickened so ligated with a
45 shannon load on a Endo JEFFREY. A 19 Senegalese round drain was placed through the left lower quadrant port into the pelvis and up the right colic gutter. This was secured to the skin with a 2-0 nylon suture.
POST OP PLAN:
Imaging: None clears
Labs: Routine AM
Diet: Clears, advance diet with return of bowel function, expect postop ileus.
Analgesia: Tylenol 650mg q6 Lawson, Kassidy 5mg q6 PRN, Dilaudid 0.5mg q2h PRN
Neuro/vascular checks: q4h
AC/AP: Hold Therapeutic AC, Ok for DVT PPx
Activity: Ad Gladis
Wound/Incisions/Drains: 19 Senegalese round Eduardo drain to bulb suction.
Abx: Antibiotics x 4 days
Dispo: RNF. Intraoperative findings and plan of care reviewed with patient's .
--- NOTE | 2023-10-11 15:12 | OR.RPT ---
Operative Report
Operative Report
Patient Name: Bettie Lynch
: 1990
Date of Operation: 10/11/2023
Pre-op Diagnosis: Acute appendicitis
Post-op Diagnosis: Acute appendicitis, intra-abdominal abscess
Procedure Performed:
1. Laparoscopic lysis of adhesions
2. Laparoscopic interval appendectomy
3. Drainage of an intra-abdominal abscess.
Surgeon(s):
Dr. Yoon
Procedures Rn(s):
None
Anesthesia Type: General
Specimen / Cultures:
1. Appendix
Urine Output: See anesthesia record
Drains/Lines/Implants:
16 Azerbaijani Bah placed at the start of the case, removed at the end.
19 Azerbaijani round Eduardo drain placed in the left lower quadrant draining the pelvis and right colic gutter.
Estimated Blood Loss: 11 cc
Complications: None
HPI/Surgical Indications:
This is a 33-year-old female with a history of perforated appendicitis that was managed on operatively with an IR drain. She ultimately did very well and the drain was removed but did have persistent occasional right lower quadrant abdominal pain.
Risks/Benefits/Alternatives were discussed at length, and the patient agreed to proceed with surgery/interval appendectomy.
Operative Findings: Fairly dense adhesions in the right lower quadrant with multiple loops of small bowel and cecum plastered over a perforated appendix. Pus pocket identified with fecalith. The base was not involved but thickened so ligated with a
45 shannon load on a Endo JEFFREY. A 19 Azerbaijani round drain was placed through the left lower quadrant port into the pelvis and up the right colic gutter. This was secured to the skin with a 2-0 nylon suture.
Procedure Description:
The patient was placed in the supine position, with the left arm tucked, and general anesthesia was induced. A 16 Azerbaijani Bah catheter was placed at the start of the case. The abdomen was prepared and draped in a sterile fashion so as to expose
the entire abdomen. A surgical time out was taken. Abdominal access was obtained with an 5mm infra-umbilical Mariela Entry. After confirming no injury on entrance, two additional 5mm ports were placed in the suprapubic area just off midline and in
the left lower quadrant. The patient was placed in Trendelenberg with the right slightly up . There were dense small bowel adhesions over the right lower quadrant. Superiorly and laterally part of the colon was also adhered over the area of
interest. We carefully lysed these adhesions with blunt and sharp dissection. This took more than 60 minutes. During the lysis, the base of the appendix was identified. As we moved distal we did encounter a small pus pocket which was suctioned
up as well as a fecalith which was removed. A perforation in the mid appendix could be readily identified. That the base of the appendix appeared fairly uninvolved it was thickened and so it was ligated with a 45 shannon load on Endo JEFFREY stapler. In
order to do this, the infraumbilical 5 mm port was upsized to a 12 mm port. The appendix was placed in a specimen retrieval bag, and removed. Hemostasis was confirmed. A 19 Azerbaijani round Eduardo drain was then passed through the left lower quadrant
port across the pelvis and up the right colic gutter. This was secured to the skin with a 2-0 nylon suture. A tongue of omentum was then brought over our surgical bed. The remaining ports were removed under direct visualization. The umbilical
port was closed with a [id number] 0-PDS and the skin for all ports was closed with interrupted monocryls and covered with dermabond. The patient was awoken from anesthesia in good condition and transported to the recovery area.
I was the attending physician and performed the procedure with no assistance. I was present for all portions of the case
Vickey Yoon MD
[2023-10-11] MEDS: DILAUDID 0.25 MG IV ×2 (15:43→15:57)
[2023-10-11] MEDS: TYLENOL 650 MG PO ×3 (16:55→23:27)
[2023-10-11] MEDS: TORADOL 10 MG IV ×2 (16:55→22:27)
--- NOTE | 2023-10-11 17:43 | PTCARENOTE ---
Called [facility] to obtain breast pump for pt, as pt has a 6 month old at home and breastfeeds/pumps. [facility] reported that they did not have a pump and to call [facility]. Called [facility], who said they don't have anything and to contact [facility]. Pt informed, and pt's
Mom bringing in her pump from home.
[2023-10-11] MEDS: ZOSYN 50 IV (19:57)
--- NOTE | 2023-10-12 03:33 | DOWNTIME ---
There was a [employer] Client Configuration Management Specialist Downtime on 10/12/2023 from 0100 to 10/12/2023 at 0255. Downtime documentation of patient's care, including medication administrations, has been reconciled in the electronic record per guidelines. Refer to the
patient's paper chart under the miscellaneous tab to see printed paper medication records and downtime forms.
[2023-10-12] MEDS: ZOSYN 50 IV ×2 (03:35→09:21)
[2023-10-12] MEDS: TORADOL 10 MG IV ×2 (03:35→10:16)
[2023-10-12] MEDS: TYLENOL 650 MG PO ×2 (03:41→12:26)
[2023-10-12 03:55] VITALS: BP 115/68
[2023-10-12 05:41] LABS: % Basophils 0.7 % (0-2); % Eosinophils 0.7 % (0-6); % Immature Granulocytes 0.4 % (0-0.5); % Lymphocytes 20.9 % (20.5-51.1); % Neutrophils 69.3 % (42.2-75.2); Absolute Basophils 0.1 10^3/uL (0-0.2); Absolute Eosinophils 0.1 10^3/uL (0-0.7); Absolute Immature Granulocytes 0.1 10^3/uL (0-0.05); Absolute Lymphocytes 2.8 10^3/uL (1.2-3.4); Absolute Monocytes 1.1 10^3/uL (0.1-0.6); Absolute Neutrophils 9.3 10^3/uL (1.4-6.5); Hematocrit 35.5 % (37.0-47.0); Hemoglobin 12.2 g/dL (12.0-16.0); Mean Corp Hgb Conc. 34.4 g/dL (33.0-37.0); Mean Corpuscular Hgb 29.7 pg (27.0-31.0); Mean Corpuscular Volume 86.4 fL (81.0-99.0); Mean Platelet Volume 12.4 fL (7.4-10.4); Nucleated Red Blood Cells % 0 %; Platelet Count 237 10^3/uL (130-400); Red Blood Cell Count 4.11 10^6/uL (4.20-5.40); Red Cell Dist. Width 14.1 % (11.5-14.5); White Blood Cell Count 13.4 10^3/uL (4.8-10.8)
[2023-10-12 06:02] LABS: Blood Urea Nitrogen 8 mg/dl (7-17); Calcium 8.3 mg/dl (8.4-10.2); Carbon Dioxide 21 mmol/L (22-30); Chloride 106 mmol/L (98-107); Estimated Creatinine Clearance 113 ml/min; Glucose 85 mg/dl (70-99); Potassium 4.1 mmol/L (3.5-5.1); Sodium 137 mmol/L (135-145); eGFR > 60.00
[2023-10-12 07:33] VITALS: BP 109/65
[2023-10-12] MEDS: TYLENOL PO ×2 (08:00→09:20)
--- NOTE | 2023-10-12 08:09 | W.PN.GS2 ---
Today's Communication / Plan
-
Advance diet
Dispo planning.
Assessment / Plan
-
This is a 33-year-old female status post POD #1 laparoscopic interval appendectomy and washout of an intra-abdominal abscess. Doing well, expected postoperative course.
Will advance to regular diet today. If she does well and continues to have her pain well-controlled and tolerates her diet we will plan to discharge her home. Will follow drain output over the day, if still high will discharge with the drain with
plan for removal in the office early next week.
Will plan for a 7-day course of antibiotics.
All questions answered, patient agreeable to plan of care above.
Time Spent
Total Time Spent with Patient (in minutes): 15
Subjective Data
-
Date of Service: October 12, 2023
Interval Events:
No acute events overnight. Slept well. Pain Controlled. Denies Nausea/Vomiting, +bowel function. Tolerating diet.
Objective Data
-
Intake and Output
10/11/23 10/12/23 10/13/23
06:59 06:59 06:59
Intake Total 1025 / 1025 480 / 480
Output Total 110 / 110
Balance 915 / 915 480 / 480
Intake:
Oral fluids 480 / 480
IV fluids (Total) 925 / 925
normosol 100 / 100
IV piggybacks 100 / 100
Output:
Drain Output (Total) 110 / 110
Left Abdomen Valentin-Shrestha 110 / 110
Other:
Number of approximated MODERATE 1
amounts of urine
Vital Signs
Temp Pulse Resp BP Pulse Ox
97.8 F 73 16 109/65 98
10/12/23 07:33 10/12/23 07:33 10/12/23 07:33 10/12/23 07:33 10/12/23 07:33
Lab Results
10/12/23 04:36
10/12/23 04:36
Calcium 8.3 mg/dl (8.4-10.2) L 10/12/23 04:36
Physical Exam
-
GENERAL/NEURO: Awake, Alert, no distress
CHEST: Unlabored breathing on RA
ABDOMEN: Soft, Non-Tender, Non-Distended, some carter-umbilical/incisional bruising, SALOMON serosanguineous.
[2023-10-12 11:29] VITALS: BP 102/58
--- NOTE | 2023-10-12 12:32 | CM ---
Addendum entered by Yumi Hunter 10/12/23 15:36:
Referral sent to VN for ORACIO of care.
Original Note:
Patient seen at bedside with patient family member both working on computer. Patient stated that she lives with spouse. Patient PCP Dr. Condon and she uses the [facility] in [place]. Patient has no prior DME and has had [facility] following. CM will send
referral for ORACIO pending patient discharge with drain. Per patient she is uncertain if she will go home with drain at this time. CM will continue to follow for discharge planning needs.
Plan; home with [facility] vs home with no needs.
--- NOTE | 2023-10-12 13:35 | PTCARENOTE ---
: Visited with Leslie who is a first time mother doing a combination of breast and formula feeding. She feels comfortable using her pump. Reviewed pumping technique, milk storage guidelines, and proper cleaning. She denies any [email or web address]
Encouraged her to reach out with or [facility] if she needs any support.
[2023-10-12 14:32] VITALS: BP 104/66
== END 2023-10-12 16:16 | disposition home or self-care (01) ==
LOC: SDS 06:21
PROVIDERS: ATTENDING PHYSICIAN Surgery
DX: K35.33 Acute appendicitis with perforation, localized peritonitis, and gangrene, with abscess (principal); K56.50 Intestinal adhesions [bands], unspecified as to partial versus complete obstruction
CPT/HCPCS: 44970; 88304; 80048; 85025; C1776

== ENCOUNTER 2024-09-16 00:44 | Inpatient (IN) | payer OTHER, SELFPAY ==
[2024-09-16 01:05] VITALS: BP 135/85; BMI 34.6
[2024-09-16 01:30] LABS: % Basophils 0.5 % (0-2); % Eosinophils 2.6 % (0-6); % Immature Granulocytes 0.9 % (0-0.5); % Lymphocytes 27.4 % (20.5-51.1); % Monocytes 6.8 % (1.7-9.3); % Neutrophils 61.8 % (42.2-75.2); Absolute Basophils 0.1 10^3/uL (0-0.2); Absolute Eosinophils 0.4 10^3/uL (0-0.7); Absolute Immature Granulocytes 0.1 10^3/uL (0-0.05); Absolute Lymphocytes 3.9 10^3/uL (1.2-3.4); Absolute Neutrophils 8.8 10^3/uL (1.4-6.5); Hemoglobin 12.4 g/dL (12.0-16.0); Mean Corp Hgb Conc. 34.4 g/dL (33.0-37.0); Mean Corpuscular Volume 84.3 fL (81.0-99.0); Mean Platelet Volume 12.8 fL (7.4-10.4); Nucleated Red Blood Cells % 0 %; Platelet Count 144 10^3/uL (130-400); Red Blood Cell Count 4.27 10^6/uL (4.20-5.40); Red Cell Dist. Width 13.7 % (11.5-14.5); White Blood Cell Count 14.2 10^3/uL (4.8-10.8)
[2024-09-16] MEDS: LR 1000 IV ×2 (01:30→05:00)
[2024-09-16] MEDS: SUBLIMAZE 100 MCG EPIDURAL (03:08)
[2024-09-16] MEDS: FENTANYL/BUPIVACAINE 100 EPIDURAL (03:08)
[2024-09-16] MEDS: TYLENOL 650 MG PO (22:46)
[2024-09-16] MEDS: SENOKOT-S 1 TABLET PO (22:46)
[2024-09-17] MEDS: MOTRIN 600 MG PO ×2 (02:12→09:38)
[2024-09-17] MEDS: TYLENOL 650 MG PO (04:27)
[2024-09-17 04:42] LABS: Hemoglobin 10.5 g/dL (12.0-16.0)
[2024-09-17] MEDS: PRENATAL PLUS 1 TABLET PO (09:38)
[2024-09-17] MEDS: SENOKOT-S 1 TABLET PO (09:44)
[2024-09-18 12:04] LABS: Syphilis/T. pallidum Ab Reflex Negative (Negative)
== END 2024-09-17 17:48 | disposition home or self-care (01) | DRG 807 ==
LOC: LDRP 00:44
PROVIDERS: ADMITTING PHYSICIAN Student in an Organized Health Care Education/Training Program; FAMILY PHYSICIAN Family Medicine
PROC: 10E0XZZ Delivery of Products of Conception, External Approach (ICD-10-PCS; 2024-09-16)
PROC: 6A550ZT Pheresis of Cord Blood Stem Cells, Single (ICD-10-PCS; 2024-09-16)
PROC: 10907ZC Drainage of Amniotic Fluid, Therapeutic from Products of Conception, Via Natural or Artificial Opening (ICD-10-PCS; 2024-09-16)
DX: O76 Abnormality in fetal heart rate and rhythm complicating labor and delivery (principal); Z37.0 Single live birth; Z3A.39 39 weeks gestation of pregnancy; Z80.8 Family history of malignant neoplasm of other organs or systems; Z82.49 Family history of ischemic heart disease and other diseases of the circulatory system
CPT/HCPCS: 36415; 85014; 85018; 85025; 86780; 86850; 86900; 86901